=== PATIENT | female | born 1980 | race African-American/Black ===

== ENCOUNTER 2017-12-28 15:57 | Emergency (ER) | payer OTHER | END 2017-12-28 16:57 | disposition home or self-care (01) | LOC: M ED 15:57 | DX: D50.9 Iron deficiency anemia, unspecified (principal); T45.4X1A Poisoning by iron and its compounds, accidental (unintentional), initial encounter; Z79.899 Other long term (current) drug therapy | CPT/HCPCS: 99284 ==

== ENCOUNTER → 2018-01-11 | Outpatient (REF) | payer OTHER ==
[2018-01-11 14:06] LABS: FERRITIN 118 NG/ML (8-252); IRON (FE) 72 UG/DL (50-170); PERCENT SATURATION 23.2 % (13.2-45.0); TOTAL IRON BINDING CAPACITY 311 UG/DL (250-450)
== END ==
LOC: M LAB REF 13:15
DX: D50.9 Iron deficiency anemia, unspecified (principal)